=== PATIENT | female | born 1985 | race Caucasian/White ===

== ENCOUNTER 2016-09-21 18:04 | Emergency (ER) | payer MEDICAID ==
[~2016-09-21] VITALS: Ht 152.4 cm; Wt 89.0 kg
[~2016-09-21 18:04] MED LIST: IBUP-988 PO
[2016-09-21 18:08] VITALS: BP 132/76; PULSE 89; RESP 16; TEMP 98.1; O2SAT 97
[2016-09-21] MEDS ORDERED: DICL75TA PO (18:20)
[2016-09-21] MEDS ORDERED: CEPH-460 PO (18:40)
[2016-09-21] MEDS ORDERED: BACT800T5 PO (18:40)
--- NOTE | 2016-09-21 18:43 | PD ---
HPI Chief Complaint: Skin Problem Time Seen by Provider: 18:30 Travel History International Travel<30 days: No Contact w/Intl Traveler<30days: No Traveled to known affect area: No History of Present Illness HPI 31-year-old female presents for evaluation of an area of skin redness, pain on the posterior left calf. She first noticed today. Pain is throbbing, constant , worse with palpation. Denies drainage, fevers or chills. She does not recall any bug bites or puncture wounds but she does shave her legs on a regular basis. She has no other complaints at this time. PFSH Past Medical History Diminished Hearing: No Influenza Vaccination: No ?: Not Tubal Ligation: Yes Social History Alcohol Use: No Tobacco Use: No Substance Use: No Allergies-Medications (Allergen,Severity, Reaction): Coded Allergies: No Known Allergies (Unverified , 09/21/16) Reported Meds & Prescriptions Reported Meds & Active Scripts Active Bactrim DS (Sulfamethoxazole-Trimethoprim) 800-160 Mg Tab 1 Tab PO BID Keflex (Cephalexin) 500 Mg Cap 500 Mg PO Q8H Reported Diclofenac Sodium DR (Diclofenac Sodium) 75 Mg Tabdr 75 Mg PO DAILY Review of Systems Except as stated in HPI: all other systems reviewed are Neg Physical Exam Narrative GENERAL: Well-developed well-nourished female in no acute distress SKIN: Warm and dry. In the posterior left calf there is a 4 cm in diameter circular area of mild erythema with a centralized papule lesion. There is no fluctuance, induration or drainage. CARDIOVASCULAR: Regular rate and rhythm. No murmur appreciated. RESPIRATORY: No accessory muscle use. Clear to auscultation. Breath sounds equal bilaterally. Data Data Last Documented VS Vital Signs Date Time Temp Pulse Resp B/P Pulse Ox O2 Delivery O2 Flow Rate FiO2 09/21/16 18:08 98.1 89 16 132/76 97 Orders Sulfamet-Trimeth Ds 800-160 Mg (Bactrim (09/21/16 18:45) Cephalexin (Keflex) (09/21/16 18:45) [facility] Medical Decision Making Medical Screen Exam Complete: Yes Emergency Medical Condition: Yes Medical Record Reviewed: Yes Differential Diagnosis Cellulitis, localized allergic reaction, abscess Narrative Course Examination reveals mild cellulitis. She is being discharged with Bactrim and Keflex. Discussed signs and symptoms that would warrant returning to the emergency room. Diagnosis Primary Impression: Cellulitis of left lower leg Additional Instructions: Medication as prescribed. Follow-up with primary care as needed. Return for any acutely new or worsening symptoms. Med/Other Pt SpecificInfo: Prescription(s) given Scripts Sulfamethoxazole-Trimethoprim (Bactrim DS)800-160 Mg Tab1 Tab PO BID #20 TAB Ref 0 Prov:Helen Wyatt DO 09/21/16 Cephalexin (Keflex)500 Mg Urs414 Mg PO Q8H #30 CAP Ref 0 Prov:Helen Wyatt DO 09/21/16 Disposition: 01 DISCHARGE HOME Condition: Stable Rad Tariq Sep 21, 2016 18:43
[2016-09-21] MEDS ORDERED: SULFAMETHOXAZOLE-TRIMETHOPRIM DS 800-160 MG TAB PO ONE (18:45)
[2016-09-21] MEDS ORDERED: CEPHALEXIN MONOHYDRATE 500 MG CAP PO ONE (18:45)
== END 2016-09-21 19:23 | disposition home or self-care (01) ==
LOC: PHEFT 18:04
DX: L03.116 Cellulitis of left lower limb (principal)
CPT/HCPCS: 99284